=== PATIENT | female | born 1945 | race Caucasian/White ===

== ENCOUNTER → 2024-05-04 13:08 | Outpatient (REF) | payer OTHER, SELFPAY | LOC: HWRAD 13:08 | PROVIDERS: ATTENDING PHYSICIAN Family Medicine | DX: Z78.0 Asymptomatic menopausal state (principal) | CPT/HCPCS: 77080 ==

== ENCOUNTER → 2024-05-07 09:18 | Outpatient (REF) | payer OTHER, SELFPAY ==
[2024-05-07 10:35] LABS: % Basophils 0.7 % (0-2); % Eosinophils 3.3 % (0-6); % Immature Granulocytes 0.3 % (0-0.5); % Lymphocytes 33.8 % (20.5-51.1); % Monocytes 7.5 % (1.7-9.3); % Neutrophils 54.4 % (42.2-75.2); Absolute Eosinophils 0.2 10^3/uL (0-0.7); Absolute Lymphocytes 2.1 10^3/uL (1.2-3.4); Absolute Monocytes 0.5 10^3/uL (0.1-0.6); Absolute Neutrophils 3.3 10^3/uL (1.4-6.5); Hematocrit 45.1 % (37.0-47.0); Hemoglobin 14.8 g/dL (12.0-16.0); Mean Corp Hgb Conc. 32.8 g/dL (33.0-37.0); Mean Corpuscular Hgb 29.4 pg (27.0-31.0); Mean Corpuscular Volume 89.7 fL (81.0-99.0); Mean Platelet Volume 10.1 fL (7.4-10.4); Nucleated Red Blood Cells % 0 %; Platelet Count 256 10^3/uL (130-400); Red Blood Cell Count 5.03 10^6/uL (4.20-5.40); White Blood Cell Count 6.1 10^3/uL (4.8-10.8)
[2024-05-07 10:59] LABS: ALT (SGPT) 12 U/L (0-35); AST (SGOT) 23 U/L (14-36); Albumin 4.4 g/dl (3.5-5.0); Alkaline Phosphatase 100 U/L (38-126); Blood Urea Nitrogen 17 mg/dl (7-17); Calcium 9.8 mg/dl (8.4-10.2); Carbon Dioxide 29 mmol/L (22-30); Chloride 102 mmol/L (98-107); Glucose 101 mg/dl (70-99); HDL Cholesterol 59 mg/dl; LDL Cholesterol, Calculated 141 mg/dl; Potassium 4.5 mmol/L (3.5-5.1); Sodium 139 mmol/L (135-145); Total Bilirubin 0.9 mg/dl (0.2-1.3); Total Cholesterol 221 mg/dl (50-199); Total Protein 7.4 g/dl (6.3-8.2); Triglyceride 107 mg/dl (10-149); Very Low Density Lipoprotein 21 mg/dl (0-30); eGFR > 60.00
== END ==
LOC: REG 09:18
PROVIDERS: ATTENDING PHYSICIAN Family Medicine
DX: E78.00 Pure hypercholesterolemia, unspecified (principal); K44.9 Diaphragmatic hernia without obstruction or gangrene; K22.2 Esophageal obstruction; M17.12 Unilateral primary osteoarthritis, left knee; E66.09 Other obesity due to excess calories
CPT/HCPCS: 36415; 80053; 80061; 84443; 85025

== ENCOUNTER 2024-05-29 09:56 | Emergency (ER) | payer OTHER, SELFPAY ==
[2024-05-29 10:08] VITALS: BP 158/89
--- NOTE | 2024-05-29 10:53 | ED.GENMED ---
History of Present Illness
General
Chief Complaint: Insect Sting
Source: patient
Exam Limitations: none
Time Seen by Provider: 05/29/24 10:41
History of Present Illness
History of Present Illness:
78-year-old female presents with bites or stings from what she thought was a wasp or bee to the right hand and left orourke. She notes increased redness and swelling to the right hand since then. She did take Benadryl. She is not diabetic. She
denies fevers or chest pain. No shortness of breath. No other complaints at this time
Past History
Past History
ED Past Medical History: None
ED Past Surgical History: None
Social History
Tobacco: Non-smoker
Alcohol: None
Living: with family
Family History
Family History: Negative Diabetes
Phy Exam
Physical Exam
Physical Exam:
General: Well-appearing female no acute respiratory distress
HEENT: Normocephalic atraumatic
Skin: Erythema and subtle tenderness noted to the right hand mainly between the thumb and index finger in the webspace. Upon closer inspection there appears to be a retained foreign body at the bite or sting area. This was expressed easily
followed by bloody return. The left orourke looks well without surrounding erythema
Course
Vital Signs
Initial and Last Documented VS:
Initial Vital Signs
Temp Pulse Resp BP Pulse Ox
98.0 F 83 16 158/89 98
05/29/24 10:08 05/29/24 10:08 05/29/24 10:08 05/29/24 10:08 05/29/24 10:08
Last Documented Vital Signs
Temp Pulse Resp BP Pulse Ox
98.0 F 83 16 158/89 98
05/29/24 10:08 05/29/24 10:08 05/29/24 10:08 05/29/24 10:08 05/29/24 10:08
MDM/Problems Addressed
Differential Diagnosis Includes:
Insect bite with retained foreign body. Question inflammatory response versus early infectious response. No abscess to drain. Advised continuation of Benadryl but will add Bridge. Stay large.
Chronic conditions affecting care:
none
Acute Exacerbation and/or Progression of Chronic Illness:
This is an acute condition
*Critical Care Note
Total Time (30-74mins, 75-104mins- exclusive of procedures): Not Applicable
ED Attending Note
-
Portions of this chart may have been created with voice recognition software.� Occasional wrong word or��sound alike� substitutions may have occurred due to the inherent limitations of voice recognition software.
Discharge Plan
Departure
Patient Disposition: Home (Routine Discharge)
Date of Disposition: 05/29/24
Time of Disposition: 10:56
Patient with high blood pressure during this ER visit?: No
Discharge Problem:
Insect bite
Instructions: Insect Bites and Stings (DC), Cellulitis (Skin Infection), Adult (DC)
Prescriptions:
New
cephalexin 500 mg capsule
500 mg PO TID 7 Days Qty: 21 0RF
Referrals:
Margarita Cordova MD [Family Provider] -
Activity Restrictions/Additional Instructions:
You may continue ice pack. You may continue Benadryl. Take Keflex as directed. Return here for worsening symptoms
Interventions
Interventions:
ED- Pulmonary Assessment Last Done: 05/29/24 10:16
ED-Skin Assessment Last Done: 05/29/24 10:16
Discharge Date and Time
Print Language: SLOVAK
== END 2024-05-29 11:10 | disposition home or self-care (01) ==
LOC: EMR 09:56
PROVIDERS: EMERGENCY PHYSICIAN Emergency Medicine; FAMILY PHYSICIAN Family Medicine
DX: S60.561A Insect bite (nonvenomous) of right hand, initial encounter (principal); W57.XXXA Bitten or stung by nonvenomous insect and other nonvenomous arthropods, initial encounter
CPT/HCPCS: 99282

== ENCOUNTER 2024-06-04 15:11 | Emergency (ER) | payer OTHER, SELFPAY ==
[2024-06-04 15:25] VITALS: BP 166/93
--- NOTE | 2024-06-04 16:55 | ED.GENMED ---
History of Present Illness
General
Chief Complaint: Insect Sting
Source: patient
Time Seen by Provider: 06/04/24 16:46
History of Present Illness
History of Present Illness:
78-year-old female with past medical history of hyperlipidemia presenting back to the emergency department after being seen last Thursday when she was stung by 4 wasps. Patient states she was started on Keflex for possible cellulitis of the right
hand and she reported improvement of the erythema but this morning noticed the erythema return to the interdigital webbing space of the right hand and also noted a pruritic area in the right antecubital region of her elbow. Patient states there is
no pain associated with either area. She states that the area of erythema on the right hand is also associated with some small edema. She denies any fevers or infectious symptoms. She still notes she has 4 days left of the Keflex and has been
taking this as prescribed. No other injuries or concerns.
Past History
Past History
ED Past Medical History: Hypercholesterolemia
ED Past Surgical History: None
Social History
Tobacco: Non-smoker
Alcohol: None
Drug: None
Personal:
Living: with family
Family History
Family History: Negative Diabetes
Review of Systems
Review of Systems
All Other Systems: ROS reviewed and negative except as documented in HPI and ROS
Phy Exam
Physical Exam
Physical Exam:
GENERAL: Alert , in no apparent distress
EYE: conjunctiva clear
Head: Normocephalic atraumatic
NECK: Supple,
ENT: mmm.
LUNGS: no acute respiratory distress
NEUROLOGICAL: Alert and oriented
SKIN: Warm and dry, skin intact.
MUSCULOSKELETAL: Right hand: Mild soft tissue swelling concentrated around the right interdigital webbing space with some mild erythema. Small sting site noted but is nontender. The area is not any more warm compared to the rest of the extremity.
Patient allows for full range of motion of all digits wrist and elbow without any pain. The erythema is blanching. In the antecubital region of the right elbow patient does have a blotchy area of erythema that is nontender, nonwarm, nonraised and
somewhat pruritic. She allows for full range of motion without difficulty. Extremities otherwise warm and well-perfused and neurovascularly intact.
PSYCH: Normal and appropriate interaction.
Scores
Heart Failure Risk
Heart Failure Risk Score: Not Applicable
Heart Score for Chest Pain Patients
STEMI patient?: Not applicable
Withdrawal Assessment of Alcohol
Withdrawal Assessment Completed?: Not applicable
Course
Vital Signs
Initial and Last Documented VS:
Initial Vital Signs
Temp Pulse Resp BP Pulse Ox
99.0 F 97 16 166/93 97
06/04/24 15:25 06/04/24 15:25 06/04/24 15:25 06/04/24 15:25 06/04/24 15:25
Last Documented Vital Signs
Temp Pulse Resp BP Pulse Ox
99.0 F 97 16 166/93 97
06/04/24 15:25 06/04/24 15:25 06/04/24 15:25 06/04/24 15:25 06/04/24 15:25
MDM/Problems Addressed
Differential Diagnosis Includes:
Cellulitis, inflammatory reaction, allergic reaction
MDM/Problems Addressed:
78-year-old female back to the emergency department for reevaluation after being seen last Thursday after being stung by 4 separate wasps. She was started on Keflex at that time and reports she is still taking. She initially did have some
improvement but noticed this morning recurring edema and erythema. There is 2 separate areas, 1 along the right hand dorsal aspect and 1 in the antecubital region. The area is nontender, nonraised and no temperature differences. Overall I am less
suspicious for cellulitis given patient is already on an antibiotic and she is without pain or infectious symptoms. I suspect the area in the antecubital region is likely alert given the pleuritic nature. Continue Benadryl, can use topical
hydrocortisone cream, continue Keflex. Advised on return precautions but otherwise stable for discharge. Patient feels comfortable with this plan.
*Pulse Oximetry
Patient hypoxic: no
*Critical Care Note
Total Time (30-74mins, 75-104mins- exclusive of procedures): Not Applicable
Data Reviewed
Review of Other/Old Records Reveals: Records
ED Attending Note
-
Portions of this chart may have been created with voice recognition software.� Occasional wrong word or��sound alike� substitutions may have occurred due to the inherent limitations of voice recognition software.
Discharge Plan
Departure
Patient Disposition: Home (Routine Discharge)
Date of Disposition: 06/04/24
Time of Disposition: 16:55
Patient with high blood pressure during this ER visit?: Yes
Discharge Problem:
Insect sting, Rash and other nonspecific skin eruption
Instructions: Insect Bites and Stings (DC)
Prescriptions:
No Action
cephalexin 500 mg capsule
500 mg PO TID 7 Days Qty: 21 0RF
Interventions
Interventions:
*Risk Screen - Suicide Last Done: 06/04/24 17:28
*General Assessment Last Done: 06/04/24 17:28
*Neglect/Abuse Screening Last Done: 06/04/24 17:28
ED- Fall Risk Assessment Last Done: 06/04/24 17:33
*ED COVID-19 Vaccine History Last Done: 06/04/24 17:28
*Nursing Disposition Last Done: 06/04/24 17:33
ED-Skin Assessment Last Done: 06/04/24 17:28
ED- Pulmonary Assessment Last Done: 06/04/24 17:28
Discharge Date and Time
Print Language: [place]ET[place]ESE
[2024-06-04 17:28] VITALS: BP 147/81
== END 2024-06-04 17:33 | disposition home or self-care (01) ==
LOC: EMR 15:11
PROVIDERS: EMERGENCY PHYSICIAN Student in an Organized Health Care Education/Training Program; FAMILY PHYSICIAN Family Medicine
DX: T63.461A Toxic effect of venom of wasps, accidental (unintentional), initial encounter (principal); R21 Rash and other nonspecific skin eruption; R60.0 Localized edema; R20.8 Other disturbances of skin sensation; L29.9 Pruritus, unspecified; E78.00 Pure hypercholesterolemia, unspecified; Z91.013 Allergy to seafood
CPT/HCPCS: 99282

== ENCOUNTER 2024-06-29 15:01 | Emergency (ER) | payer OTHER, SELFPAY ==
[2024-06-29 15:06] VITALS: BP 171/90
--- NOTE | 2024-06-29 18:19 | ED.GENMED ---
History of Present Illness
General
Chief Complaint: Insect Sting
Source: patient
Exam Limitations: none
Time Seen by Provider: 06/29/24 18:00
History of Present Illness
History of Present Illness:
This is a 78 year old female that comes in with c/o a sting to the right ear. States that she was out mowing her lawn when she got stung. States that she is not allergic to bee's. States that this happened about 12 noon. States that her ear is ear
and that she did take some Benadryl. Denies any fever, chills, chest pain. SOB, abd pain, nausea, vomiting, diarrhea, headache, dizziness, urinary burning.
Past History
Past History
ED Past Medical History: Hypercholesterolemia; Negative Asthma, HTN or NIDDM
ED Past Surgical History: None
Social History
Tobacco: Non-smoker
Alcohol: None
Drug: None
Personal:
Living: alone
Family History
Family History: Negative Diabetes
Review of Systems
Review of Systems
All Other Systems: ROS reviewed and negative except as documented in HPI and ROS
Constitutional: Reports no symptoms; Denies fever or chills
EENT: Reports other (Sting to right ear with redness)
Respiratory: Reports no symptoms; Denies cough or trouble breathing
Cardiac: Reports no symptoms; Denies chest pain
ABD/GI: Reports no symptoms; Denies abdominal pain, nausea, vomiting or diarrhea
: Reports no symptoms; Denies dysuria or urgency
Musculoskeletal: Reports no symptoms
Skin: Reports other (Right ear red)
Neurological: Reports no symptoms; Denies dizzy or headache
Psychiatric: Reports no symptoms
Phy Exam
General Physical Exam
General Presentation: well appearing and no apparent distress
General age: appears stated age
General Skin: warm and dry
General Habitus: elderly
General Mental: alert
General Hydration: appears well hydrated
ENT Exam
ENT Exam: TM's normal, pharynx normal, neck supple and other (Right ear slightly swollen and red. Local reaction. Unable to see sting site. )
Eye Exam
Eye Exam: EOMI
Cardiovascular Exam
Cardiovascular Exam: regular rate/rhythm
Pulmonary Exam
Pulmonary Exam: lungs clear, no respiratory distress, no rales, chest non tender, no crackles, no rhonchi, no wheezing and no cough
Musculoskeletal Exam
Musculoskeletal Exam: full ROM
Skin Exam
Skin Exam: normal color, warm/dry, no petechia and other (Right ear slightly red with local swelling )
Psychiatric Exam
Psychiatric Exam: normal mood/affect
Course
Vital Signs
Initial and Last Documented VS:
Initial Vital Signs
Temp Pulse Resp BP Pulse Ox
98.0 F 93 18 171/90 95
06/29/24 15:06 06/29/24 15:06 06/29/24 15:06 06/29/24 15:06 06/29/24 15:06
Last Documented Vital Signs
Temp Pulse Resp BP Pulse Ox
98.0 F 93 18 171/90 95
06/29/24 15:06 06/29/24 15:06 06/29/24 15:06 06/29/24 15:06 06/29/24 15:06
MDM/Problems Addressed
Differential Diagnosis Includes:
sting ear
MDM/Problems Addressed:
This is a 78 year old female that comes in with c/o sting to right ear. States that she is not allergic to bee's.
Explained to patient that this is a local reaction to the sting. Patient can continue with Benadryl as needed and use Tooth paste to help decrease the stinging. If there is increased redness or swelling over the next few days she can follow up with
the family doctor. But his should go down and away on its own. Patient to return with any concerns.
Chronic conditions affecting care:
NA
Acute Exacerbation and/or Progression of Chronic Illness:
NA
*Pulse Oximetry
Patient hypoxic: no
*EKG
Interpreted by ED Provider?: NA
Rate: EKG- N/A
*Shoe Repairer Interpretation
Rate: Shoe Repairer- N/A
*Critical Care Note
Total Time (30-74mins, 75-104mins- exclusive of procedures): Not Applicable
ED Attending Note
-
Portions of this chart may have been created with voice recognition software.� Occasional wrong word or��sound alike� substitutions may have occurred due to the inherent limitations of voice recognition software.
Discharge Plan
Departure
Patient Disposition: Home (Routine Discharge)
Date of Disposition: 06/29/24
Time of Disposition: 18:25
Patient with high blood pressure during this ER visit?: Yes
Condition: Good
Covid-19: Not Applicable
Discharge Problem:
Bee sting reaction
Instructions: Insect Bites and Stings (DC), BLOOD PRESSURE
Prescriptions:
No Action
cephalexin 500 mg capsule
500 mg PO TID 7 Days Qty: 21 0RF
Referrals:
UNKNOWN - PT NOT,INTERVIEWE [Family Provider] -
Activity Restrictions/Additional Instructions:
As discussed, this is most likely a local reaction to the sting. This should go away all on its own. You may use Tooth paste to take the sting away. You can also use Benadryl 50mg every 6 hours as needed for any itching. Follow up with the family
doctor as needed. IF THERE IS INCREASED SWELLING OR REDNESS IN THE NEXT 3-4 DAYS OR YOU HAVE ANY OTHER CONCERNS PLEASE RETURN TO THE EMERGENCY ROOM OR SEE THE PRIMARY CARE DOCTOR.
Discharge Date and Time
Print Language: POLISH
== END 2024-06-29 18:36 | disposition home or self-care (01) ==
LOC: EMR 15:01
PROVIDERS: EMERGENCY PHYSICIAN Student in an Organized Health Care Education/Training Program
DX: T63.441A Toxic effect of venom of bees, accidental (unintentional), initial encounter (principal); H93.8X1 Other specified disorders of right ear; R03.0 Elevated blood-pressure reading, without diagnosis of hypertension; E78.00 Pure hypercholesterolemia, unspecified; Z91.013 Allergy to seafood
CPT/HCPCS: 99281